=== PATIENT | female | born 1985 | race Caucasian/White ===

== ENCOUNTER 2019-05-15 09:24 | Emergency (ER) | payer MEDICAID ==
[~2019-05-15] VITALS: Ht 165.1 cm; Wt 77.6 kg
[~2019-05-15 09:24] MED LIST: ACET500T98 PO; CLIN300C10 PO; PRENAT PO
[2019-05-15 09:30] VITALS: Ht 165.1 cm; Wt 77.6 kg
[2019-05-15] MEDS ORDERED: ALBUTEROL 0.083% (NEB) 2.5 MG/3 ML AMP NEB STA (09:46)
[2019-05-15] MEDS ORDERED: AZIT250T PO (09:49)
[2019-05-15] MEDS ORDERED: BENZ-6 PO (09:49)
[2019-05-15] MEDS ORDERED: MED4DP PO (09:50)
--- NOTE | 2019-05-15 09:50 | ERD ---
ER Documentation Chief Complaint Chief Complaint cough & sorethroat x1mth HPI 33-year-old female reports to the ED complaining about coughing and sore throat x1 month. She reports that she has been having a dry nonproductive, nonbloody cough that will not go away. She denies any fevers, nasal congestion, abdominal pain, nausea, vomiting, diarrhea, or headaches. She denies any difficulty breathing or respiratory distress. She ports that she does not smoke, denies history of asthma or COPD. Warts that nothing makes her cough better or worse. ROS All systems reviewed and are negative except as per history of present illness. Medications Home Meds Active Scripts Methylprednisolone* (Medrol* DOSE PACK) 4 Mg/Dose-Pack Tab.ds.pk, 4 MG PO . DIRECTED, #5 PACKET Prov:JACKY TURPIN PA-C 05/15/19 Benzonatate* (Tessalon Perle*) 100 Mg Capsule, 100 MG PO TID, #30 CAP Prov:JACKY TURPIN PA-C 05/15/19 Azithromycin* (Zithromax*) 250 Mg Tablet, 250 MG PO .ZPACK DIRECTED, #6 TAB TAKE 500 MG (2 TABS) THE FIRST DAY THEN 250 MG (1 TAB) DAYS 2-5 Prov:JACKY TURPIN PA-C 05/15/19 Acetaminophen (Tylenol) 500 Mg Tab, 500 MG PO Q6, #30 TAB 0 Refills Prov:BARBER GRISSOM PA-C 01/06/16 Clindamycin Hcl* (Clindamycin Hcl*) 300 Mg Capsule, 300 MG PO TID, #30 CAP 0 Refills Prov:BARBER GRISSOM PA-C 01/06/16 Reported Medications Multivit/Min/Fol Ac/Iron/Pren* ( S*) 1 Tab Tab, 1 TAB PO DAILY, TAB 12/22/15 Allergies Allergies: Coded Allergies: No Known Allergies (Verified Allergy, Unknown, 12/28/15) Uncoded Allergies: NO (Allergy, Intermediate, 12/22/15) PMhx/Soc Medical and Surgical Hx: pt denies Medical Hx Hx Alcohol Use: No Hx Substance Use: No Hx Tobacco Use: No FmHx Family History: No diabetes Physical Exam Vitals Vital Signs Date Temp Pulse Resp B/P (MAP) Pulse Ox O2 O2 Flow FiO2 Time Delivery Rate 05/15/19 98.2 90 18 129/70 98 10:46 (89) 05/15/19 81 20 96 21 09:51 05/15/19 98.2 83 18 136/75 98 09:30 (95) Physical Exam Const: No acute distress, coughing frequently during exam Head: Atraumatic Eyes: Normal Conjunctiva ENT: Normal External Ears, Nose and Mouth. Neck: Full range of motion Resp: Slight wheezing throughout lungs Cardio: Regular rate and rhythm Abd: Soft, non tender, non distended Skin: No petechiae or rashes Back: No midline tenderness Ext: No cyanosis, or edema Neur: Awake and alert Psych: Normal Mood and Affect Results 24 hrs Current Medications Medications Dose Sig/Kristie Start Time Status Last (Trade) Ordered Route PRN Stop Time Admin Dose Reason Admin Albuterol 5 mg ONCE STAT 05/15/19 DC 05/15/19 (Proventil NEB 09:46 09:50 0.083% (Neb)) 05/15/19 09:48 Procedures/MDM ED COURSE: The patient was stable throughout ED course. I kept the patient informed of laboratory and diagnostic imaging results throughout the ED course. PROCEDURES: Breathing treatment with albuterol MEDICATIONS GIVEN: Albuterol Patient tolerated medication well with no adverse reactions. Patient reported improvement in pain. MEDICAL DECISION MAKING: Patient is a 33-year-old female presenting with chronic cough x1 month. Has a similar instance of this and reports that she is not a smoker, has no history of asthma or COPD. During physical exam she is coughing frequently with mild wheezing. A breathing treatment was done and the patient felt much better afterwards and her breathing improved. I think this is bronchitis she is suffering from at this time. Patient was discharged with outpatient treatment and told to follow-up with her primary care provider for further management. There is a low suspicion for pneumonia, pneumothorax, mononucleosis, pulmonary embolism, epiglottitis, otitis media, otitis externa, viral/strep pharyngitis, sinusitis, myocarditis, pericarditis, endocarditis, peritonsillar abscess, mastoiditis, retropharyngeal abscess, meningitis, sepsis, acute abdomen or other emergent conditions. Vital signs were reviewed. Patient is afebrile. Patient was not hypoxic. Patient was hemodynamically stable. PRESCRIPTION: Medrol Dosepak, Davin Montes, Z-Erasmo DISCHARGE: At this time, patient is stable for discharge and outpatient management. I have instructed the patient to follow-up with his/her primary care physician in 1-2 days. I have discussed with the patient the possibility of needing to see a specialist for further workup and imaging studies if symptoms persist. I have instructed the patient to promptly return to the ER for any new or worsening symptoms including increased pain, fever, nausea, vomiting, weakness or LOC. The patient and/or family expressed understanding of and agreement with this plan. All questions were answered. Home care instructions were provided. Disclaimer: Inadvertent spelling and grammatical errors are likely due to EHR/dictation software use and do not reflect on the overall quality of patient care. Also, please note that the electronic time recorded on this note does not necessarily reflect the actual time of the patient encounter. Departure Diagnosis: Primary Impression: Bronchitis Condition: Fair Patient Instructions: Bronchitis With Wheezing (Adult) Referrals: [facility] YOU HAVE RECEIVED A MEDICAL SCREENING EXAM AND THE RESULTS INDICATE THAT YOU DO NOT HAVE A CONDITION THAT REQUIRES URGENT TREATMENT IN THE EMERGENCY DEPARTMENT. FURTHER EVALUATION AND TREATMENT OF YOUR CONDITION CAN WAIT UNTIL YOU ARE SEEN IN YOUR DOCTORS OFFICE WITHIN THE NEXT 1-2 DAYS. IT IS YOUR RESPONSIBILITY TO MAKE AN APPOINTMENT FOR FOLOW-UP CARE. IF YOU HAVE A PRIMARY DOCTOR --you should call your primary doctor and schedule an appointment IF YOU DO NOT HAVE A PRIMARY DOCTOR YOU CAN CALL OUR PHYSICIAN REFERRAL HOTLINE AT IF YOU CAN NOT AFFORD TO SEE A PHYSICIAN YOU CAN CHOSE FROM THE FOLLOWING [facility] [address] [facility]. [facility] [address] [facility]. [facility] [address] [facility]. [facility] [address] [facility]. [facility] [address] [facility]. [facility]. [address] [facility] YOU HAVE RECEIVED A MEDICAL SCREENING EXAM AND THE RESULTS INDICATE THAT YOU DO NOT HAVE A CONDITION THAT REQUIRES URGENT TREATMENT IN THE EMERGENCY DEPARTMENT. FURTHER EVALUATION AND TREATMENT OF YOUR CONDITION CAN WAIT UNTIL YOU ARE SEEN IN YOUR DOCTORS OFFICE WITHIN THE NEXT 1-2 DAYS. IT IS YOUR RESPONSIBILITY TO MAKE AN APPOINTMENT FOR FOLOW-UP CARE. IF YOU HAVE A PRIMARY DOCTOR --you should call your primary doctor and schedule and appointment IF YOU DO NOT HAVE A PRIMARY DOCTOR YOU CAN CALL OUR PHYSICIAN REFERRAL HOTLINE AT . IF YOU CAN NOT AFFORD TO SEE A PHYSICIAN YOU CAN CHOSE FROM THE FOLLOWING [facility] INSTITUTIONS: [facility] [address] [place] [address] [facility] [address] [place] [address] [facility] + [facility] [address] [place] [address] Additional Instructions: Call your primary care doctor TOMORROW for an appointment during the next 1-2 days.See the doctor sooner or return here if your condition worsens before your appointment time. JACKY TURPIN PA-C May 15, 2019 09:50
[2019-05-15 10:46] VITALS: BP 129/70; PULSE 90; RESP 18
== END 2019-05-15 10:49 | disposition home or self-care (01) ==
LOC: FTE 09:24
DX: J40 Bronchitis, not specified as acute or chronic (principal)
CPT/HCPCS: 94664; Z7502; Z7610

== ENCOUNTER 2019-05-21 17:47 | Emergency (ER) | payer MEDICAID ==
[~2019-05-21] VITALS: Ht 160 cm; Wt 78.8 kg
[~2019-05-21 17:47] MED LIST changes: +AZIT250T PO; +BENZ-6 PO; +MED4DP PO
[2019-05-21 17:49] VITALS: Ht 160 cm; Wt 78.8 kg
[2019-05-21] MEDS ORDERED: ALBUTEROL 0.083% (NEB) 2.5 MG/3 ML AMP HHN STA (18:15)
[2019-05-21] MEDS ORDERED: GUAIFENESIN LA 600 MG TABSR PO ONE (18:30)
[2019-05-21] MEDS ORDERED: IPRATROPIUM (NEB) 0.5 MG/2.5 ML AMP HHN ONE (18:30)
[2019-05-21] MEDS ORDERED: PROMETHAZINE/CODEINE 5ML CUP PO ONE (18:30)
[2019-05-21] MEDS ORDERED: BENZONATATE 100 MG CAP PO ONE (18:30)
[2019-05-21] MEDS ORDERED: CETI10TA19 PO (19:34)
[2019-05-21] MEDS ORDERED: BENZ-6 PO (19:34)
[2019-05-21] MEDS ORDERED: [UNRECOGNIZED DRUG - CODE] PO (19:34)
[2019-05-21] MEDS ORDERED: PROM5SYR2 PO (19:34)
[2019-05-21] MEDS ORDERED: ALBU18HF INHALATION (19:34)
[2019-05-21 19:45] VITALS: BP 129/78; PULSE 61; RESP 17
--- NOTE | 2019-05-21 19:46 | ERD ---
ER Documentation Chief Complaint Chief Complaint cough x 6 weeks HPI History of Present Illness: 33-year-old female coming in today with complaint of persistent cough that is been present for approximately 6 weeks. Patient denies any past medical history. Patient denies being a smoker. Patient reports a ER visit to [facility] emergency department on 05/15/2019 for similar symptoms. Patient reports completing course of azithromycin as well as Medrol Dosepak. Patient is still reporting a dry nonproductive nonbloody cough. Denies fevers, nasal congestion, abdominal pain, nausea, vomiting, diarrhea, headaches, chest pain, palpitations. At home pharmacological/nonpharmacological treatment for symptoms: Completed course of azithromycin and Medrol Dosepak Denies social concerns; Denies recent foreign travel ROS All systems reviewed and are negative except as per history of present illness. Medications Home Meds Active Scripts Albuterol Sulfate* (Ventolin HFA*) 18 Gm Hfa.aer.ad, 2 PUFF INHALATION Q6H for C OUGH/SOB/WHEEZING, #1 INHALER Prov:YOKO ACOSTA NP 05/21/19 Cetirizine Hcl* (Cetirizine Hcl*) 10 Mg Tablet, 10 MG PO DAILY for ALLERIGES/COUGH/RUNNY NOSE, #30 TAB Prov:YOKO ACOSTA NP 05/21/19 Guaifenesin (Guaifenesin) 1,200 Mg Tab.er.12h, 1200 MG PO Q12 for COUGH WITH PHLEGM/CHEST CONGES, #30 TAB Prov:YOKO ACOSTA NP 05/21/19 Benzonatate* (Tessalon Perle*) 100 Mg Capsule, 200 MG PO Q8H PRN for COUGH, #30 CAP Prov:YOKO ACOSTA NP 05/21/19 Promethazine HCl/Codeine (Prometh-Codein 6.25-10 mg/5 ml) 5 Ml Syrup, 5 ML PO Q6 for COUGH/ALLERGIES for 7 Days, #180 ML Prov:YOKO ACOSTA NP 05/21/19 Methylprednisolone* (Medrol* DOSE PACK) 4 Mg/Dose-Pack Tab.ds.pk, 4 MG PO . DIRECTED, #5 PACKET Prov:JACKY TURPIN PA-C 05/15/19 Benzonatate* (Tessalon Perle*) 100 Mg Capsule, 100 MG PO TID, #30 CAP Prov:JACKY TURPIN PA-C 05/15/19 Azithromycin* (Zithromax*) 250 Mg Tablet, 250 MG PO .AlexPACK DIRECTED, #6 TAB TAKE 500 MG (2 TABS) THE FIRST DAY THEN 250 MG (1 TAB) DAYS 2-5 Prov:JACKY TURPIN PA-C 05/15/19 Acetaminophen (Tylenol) 500 Mg Tab, 500 MG PO Q6, #30 TAB 0 Refills Prov:BARBER GRISSOM PA-C 01/06/16 Clindamycin Hcl* (Clindamycin Hcl*) 300 Mg Capsule, 300 MG PO TID, #30 CAP 0 Refills Prov:BARBER GRISSOM PA-C 01/06/16 Reported Medications Multivit/Min/Fol Ac/Iron/Pren* ( S*) 1 Tab Tab, 1 TAB PO DAILY, TAB 12/22/15 Allergies Allergies: Coded Allergies: No Known Allergies (Verified Allergy, Unknown, 12/28/15) Uncoded Allergies: NO (Allergy, Intermediate, 12/22/15) PMhx/Soc Medical and Surgical Hx: pt denies Medical Hx, pt denies Surgical Hx Hx Alcohol Use: No Hx Substance Use: No Hx Tobacco Use: No Smoking Status: Never smoker FmHx Family History: No diabetes, No coronary disease Physical Exam Vitals Vital Signs Date Temp Pulse Resp B/P (MAP) Pulse Ox O2 O2 Flow FiO2 Time Delivery Rate 05/21/19 92 20 96 21 18:32 05/21/19 98.8 90 18 125/78 98 17:49 (94) Physical Exam Const: No acute distress, afebrile Head: Atraumatic Eyes: Normal Conjunctiva ENT: Normal External Ears, Nose and Mouth. Neck: Full range of motion. No meningismus. Resp: Coarse breath sounds to auscultation bilaterally Cardio: Regular rate and rhythm, no murmurs Abd: Soft, non tender, non distended. No guarding, no masses, no rigidity Skin: No petechiae or rashes Back: No midline or flank tenderness Ext: No cyanosis, or edema Neur: Awake and alert x3, speaking in clear sentences, no focal deficits or facial asymmetry Psych: Normal Mood and Affect Results 24 hrs Current Medications Medications Dose Sig/Kristie Start Time Status Last (Trade) Ordered Route PRN Stop Time Admin Dose Reason Admin Albuterol 5 mg ONCE STAT 05/21/19 DC 05/21/19 (Proventil HHN 18:15 18:32 0.083% (Neb)) 05/21/19 18:17 Ipratropium 0.5 mg ONCE ONCE 05/21/19 DC 05/21/19 [place] HHN 18:30 18:31 (Atrovent 05/21/19 18:31 0.02% (Neb)) Promethazine 10 ml ONCE ONCE 05/21/19 DC 05/21/19 HCl/ PO 18:30 18:30 Codeine 05/21/19 18:31 (Phenergan/ Codeine) Benzonatate 200 mg ONCE ONCE 05/21/19 DC 05/21/19 (Tessalon) PO 18:30 18:36 05/21/19 18:31 Guaifenesin 1,200 mg ONCE ONCE 05/21/19 DC 05/21/19 (Mucinex) PO 18:30 18:36 05/21/19 18:31 Procedures/MDM ED course includes a thorough examination and history. Medications: Nebulizer treatments including albuterol, Atrovent; promethazine/codeine; guaifenesin; Tessalon Perles Imaging: I did not feel imaging was warranted, patient is afebrile and shows no signs of hypoxemia Labs: Low suspicion for life-threatening medical emergency. Low suspicion for acute cardiopulmonary emergency including but not limited to pneumonia, pleural effusion, CHF, pneumothorax, pulmonary cutis, pulmonary embolus, epiglottitis, Otherwise healthy patient presenting with constellation of symptoms likely representing bronchitis as characterized by history, physical exam findings. Patient [id number]: Nebulizer treatments completed, patient tolerated well with no adverse reactions. Lungs clear to auscultation bilaterally. Patient with decreased cough frequency. Patient hemodynamically stable. No respiratory distress, otherwise relatively well appearing and nontoxic. Disposition given. Patient educated on diagnoses, prescriptions, follow-up care, return precautions. Strict return precautions given for worsening condition; questions answered discharge. Patient verbalized understanding of discharge instructions. Disposition for discharge with followup in 2 days with PCP/clinic. Departure Diagnosis: Primary Impression: Bronchitis Condition: Stable Patient Instructions: Bronchitis, No Antibiotic (Adult) Referrals: [facility] YOU HAVE RECEIVED A MEDICAL SCREENING EXAM AND THE RESULTS INDICATE THAT YOU DO NOT HAVE A CONDITION THAT REQUIRES URGENT TREATMENT IN THE EMERGENCY DEPARTMENT. FURTHER EVALUATION AND TREATMENT OF YOUR CONDITION CAN WAIT UNTIL YOU ARE SEEN IN YOUR DOCTORS OFFICE WITHIN THE NEXT 1-2 DAYS. IT IS YOUR RESPONSIBILITY TO MAKE AN APPOINTMENT FOR FOLOW-UP CARE. IF YOU HAVE A PRIMARY DOCTOR --you should call your primary doctor and schedule an appointment IF YOU DO NOT HAVE A PRIMARY DOCTOR YOU CAN CALL OUR PHYSICIAN REFERRAL HOTLINE AT IF YOU CAN NOT AFFORD TO SEE A PHYSICIAN YOU CAN CHOSE FROM THE FOLLOWING [facility] CL[facility]ICS [facility] [address] [facility]. [facility] [address] [facility]. [facility] [address] [facility]. [facility] [address] [facility]. [facility] [address] [facility]. [facility] [address] [facility]. [facility] YOU HAVE RECEIVED A MEDICAL SCREENING EXAM AND THE RESULTS INDICATE THAT YOU DO NOT HAVE A CONDITION THAT REQUIRES URGENT TREATMENT IN THE EMERGENCY DEPARTMENT. FURTHER EVALUATION AND TREATMENT OF YOUR CONDITION CAN WAIT UNTIL YOU ARE SEEN IN YOUR DOCTORS OFFICE WITHIN THE NEXT 1-2 DAYS. IT IS YOUR RESPONSIBILITY TO MAKE AN APPOINTMENT FOR FOLOW-UP CARE. IF YOU HAVE A PRIMARY DOCTOR --you should call your primary doctor and schedule and appointment IF YOU DO NOT HAVE A PRIMARY DOCTOR YOU CAN CALL OUR PHYSICIAN REFERRAL HOTLINE AT . IF YOU CAN NOT AFFORD TO SEE A PHYSICIAN YOU CAN CHOSE FROM THE FOLLOWING [facility] INSTITUTIONS: [facility] [address] [place] [address] [facility] [address] [place] [address] [facility] + [facility] [address] [place] [address] Additional Instructions: Thank you very much for allowing us to participate in your care. Your health and safety is our top priority at [facility]. It is important to read all discharge instructions and education provided in your discharge packet. Call your primary care doctor TOMORROW for an appointment during the next 2-4 days and bring all the information and medications prescribed. Have prescriptions filled and follow precisely the directions on the label. -Cetirizine as an antihistamine that should not cause drowsiness; take this medication every day for allergy-like symptoms/cough/runny nose. --Benzonatate/Tessalon Perles is a medication that will help with cough suppression. This medication will not make you drowsy. -Ventolin is an inhaler. This medication is used to treat or prevent bronchospasm. This can be used to treat wheezing, shortness of breath, cough. -Guaifenesin is a mucolytic. This medication will help loosen secretions so you can cough them up. --Promethazine/codeine is a cough syrup but also contains an antihistamine as well as an opiate. This medication may cause drowsiness. Take this medication as needed for cough and symptoms. Do not operate heavy machinery while taking this medication. If the symptoms get worse and your provider is unavailable, return to the Emergency Department immediately. YOKO ACOSTA NP May 21, 2019 19:46
== END 2019-05-21 19:45 | disposition home or self-care (01) ==
LOC: FTE 17:47
DX: J40 Bronchitis, not specified as acute or chronic (principal)
CPT/HCPCS: 94664; Z7502; Z7610